=== PATIENT | female | born 1960 | race Caucasian/White ===

== ENCOUNTER → 2023-10-16 15:43 | Outpatient (REF) | payer OTHER, SELFPAY | LOC: DHCBS HW 15:43 | PROVIDERS: ATTENDING PHYSICIAN Internal Medicine Cardiovascular Disease; FAMILY PHYSICIAN Physician Assistant Medical | DX: E78.2 Mixed hyperlipidemia (principal) | CPT/HCPCS: 93306 ==

== ENCOUNTER → 2023-12-04 14:47 | Outpatient (REF) | payer OTHER, SELFPAY | LOC: HWWDC 14:47 | PROVIDERS: ATTENDING PHYSICIAN Obstetrics & Gynecology; FAMILY PHYSICIAN Physician Assistant Medical | DX: Z12.31 Encounter for screening mammogram for malignant neoplasm of breast (principal) | CPT/HCPCS: 77063; 77067 ==

== ENCOUNTER → 2024-12-17 14:25 | Outpatient (REF) | payer OTHER, SELFPAY | LOC: WDC 14:25 | PROVIDERS: ATTENDING PHYSICIAN Obstetrics & Gynecology; FAMILY PHYSICIAN Physician Assistant Medical | DX: Z12.31 Encounter for screening mammogram for malignant neoplasm of breast (principal) | CPT/HCPCS: 77063; 77067 ==